=== PATIENT | male | born 1960 | race Caucasian/White ===

== ENCOUNTER 2020-07-01 14:25 | Emergency (ER) | payer OTHER ==
[~2020-07-01] VITALS: Ht 195.6 cm; Wt 117.9 kg
[2020-07-01 14:36] VITALS: Ht 195.6 cm; Wt 117.9 kg
[2020-07-01 17:17] VITALS: BP 143/83
== END 2020-07-01 17:17 | disposition home or self-care (01) ==
LOC: ED 14:25
DX: S62.522B Displaced fracture of distal phalanx of left thumb, initial encounter for open fracture (principal); S61.012A Laceration without foreign body of left thumb without damage to nail, initial encounter; W23.0XXA Caught, crushed, jammed, or pinched between moving objects, initial encounter; Y93.89 Activity, other specified; Y92.89 Other specified places as the place of occurrence of the external cause; Y99.8 Other external cause status
CPT/HCPCS: A4570; J0690; Q0162